=== PATIENT | female | born 1945 | race Caucasian/White ===

== ENCOUNTER 2018-08-24 07:51 | Inpatient (IN) | payer OTHER ==
[2018-08-12 11:51] VITALS: BMI 30.9
[~2018-08-24 07:51] MED LIST: CEFAZOLIN 2 GM in DEXTROSE 5%-WATER - 50 ML IVPB ONE; VANCOMYCIN 1,250 MG in DEXTROSE 5%-WATER - 250 ML IVPB ONE
[2018-08-24] MEDS ORDERED: MIDAZOLAM HCL 2 MG/2 ML SINGLE DOSE VIAL ONE ×2 (09:32→10:05)
[2018-08-24] MEDS ORDERED: BUPIVACAINE LIPOSOME/PF (EXPAREL) 266 MG/20 ML VIAL ONE (09:32)
[2018-08-24] MEDS ORDERED: PROPOFOL 20 ML ONE ×4 (10:05→13:02)
[2018-08-24] MEDS ORDERED: SUCCINYLCHOLINE CHLORIDE 200 MG/10 ML VIAL ONE (10:05)
[2018-08-24] MEDS ORDERED: ceFAZolin SODIUM 1 GM VIAL ONE (10:42)
[2018-08-24] MEDS ORDERED: DEXAMETHASONE SOD PHOSPHATE 4 MG/1 ML VIAL ONE (10:42)
[2018-08-24] MEDS ORDERED: TRANEXAMIC ACID 1000 MG/10 ML VIAL ONE (10:42)
[2018-08-24] MEDS ORDERED: ONDANSETRON 4 MG/2 ML VIAL ONE (10:42)
[2018-08-24] MEDS ORDERED: KETOROLAC TROMETHAMINE 60 MG/2 ML VIAL ONE (10:58)
[2018-08-24] MEDS ORDERED: EPINEPHrine/PF 1 MG/1 ML (1:1,000) AMPULE ONE (10:58)
[2018-08-24] MEDS ORDERED: SODIUM CHLORIDE 0.9% P/F 10 ML VIAL IJ ONE (10:59)
[2018-08-24] MEDS ORDERED: MORPHINE SULFATE 10 MG/1 ML *VIAL ONE (10:59)
[2018-08-24] MEDS ORDERED: BUPIVACAINE HCL/PF 2.5 MG/ML - 30 ML VIAL IJ ONE (11:00)
--- NOTE | 2018-08-24 12:48 | PN ---
Progress Note (short form) - Note Progress Note: 73F s/p RIGHT total knee replacement POD #0. -Pain control. -DVT PPx: -Chemical: ASA 81mg PO BID x 6 weeks. -Mechanical: CAITY's, SCD's. -Incentive spirometry q15 min. -PT/OT/Rehab, OOB. -WBAT LLE. -Antibiotics: Ancef x 2 post op doses. -f/u post-op trial of void. -f/u drain output; ok to d/c when <30cc/8 hrs. -Diet as tolerated. -Keep dressing clean & dry. -Care per medical hospitalist team. -f/u [facility] [place] office 09/02/2017; call for appointment; . -Will follow. Thanh Cobos MD (Orthopaedic Surgery).
[2018-08-24] MEDS ORDERED: MAG HYDROX/AL HYDROX/SIMETH 30 ML UNIT-DOSE CUP PO PRN (12:52)
[2018-08-24] MEDS ORDERED: MAGNESIUM HYDROX 2400MG/30ML ORAL SUSPENSION 30 ML CUP PO PRN (12:52)
--- NOTE | 2018-08-24 12:52 | OP ---
Operative Note - Note: Operative Date: 08/24/18 Pre-Operative Diagnosis: Right knee DJD Operation: Right TKA Implants: Fertile Triathlon. Femur - 4. Tibia - 4. Poly - 9mm, PS. Patella - 27mm Post-Operative Diagnosis: Same as Pre-op Surgeon: Thanh Cobos Film Tests Checker: Zuhair Cobos Anesthesiologist/COMMERCIAL GREEN BUILDING DESIGNER: Chito Beckford Anesthesia: Spinal Specimens Removed: Bone, soft tissue Estimated Blood Loss (mls): 0 Drains & Tubes with Location: 1 x deep HemoVac Fluid Volume Replaced (mls): 1,000 Operative Report Dictated: Yes
[2018-08-24] MEDS ORDERED: LACTATED RINGERS SOLUTION 1,000 ML IV SCH (13:00)
[2018-08-24] MEDS ORDERED: BENZOIN/ALOE VERA/STORAX/TOLU 58 ML BOTTLE ONE (13:00)
[2018-08-24] MEDS ORDERED: PROMETHAZINE HCL 25 MG/1 ML VIAL IVPB PRN (13:43)
[2018-08-24] MEDS ORDERED: ONDANSETRON 4 MG/2 ML VIAL IVPUSH PRN (13:43)
[2018-08-24] MEDS ORDERED: ACETAMINOPHEN 325 MG TABLET (FP) PO SCH (13:45)
[2018-08-24] MEDS: ACETAMINOPHEN 325 MG TABLET (FP) PO SCH ×2 (14:45→20:10)
--- NOTE | 2018-08-24 16:46 | CONSULT ---
Consultation: REQUESTING PROVIDER: Dr. Thanh Cobos CONSULT REQUEST: We have been asked to medically evaluate this patient post- operatively. HISTORY OF PRESENT ILLNESS: 73 year-old female with a PMH significant for HTN, HLD, osteoarthritis, and right knee degenerative joint disease s/p right total knee replacement earlier today. REVIEW OF SYSTEMS: CONSTITUTIONAL: Absent: fever, chills, diaphoresis, generalized weakness, malaise, loss of appetite, weight change HEENT: Absent: rhinorrhea, nasal congestion, throat pain, throat swelling, difficulty swallowing, mouth swelling, ear pain, eye pain, visual changes CARDIOVASCULAR: Absent: chest pain, syncope, palpitations, irregular heart rate, lightheadedness , peripheral edema RESPIRATORY: Absent: cough, shortness of breath, dyspnea with exertion, orthopnea, wheezing, stridor, hemoptysis GASTROINTESTINAL: Absent: abdominal pain, abdominal distension, nausea, vomiting, diarrhea, constipation, melena, hematochezia GENITOURINARY: Absent: dysuria, frequency, urgency, hesitancy, hematuria, flank pain, genital pain MUSCULOSKELETAL: Absent: myalgia, arthralgia, joint swelling, back pain, neck pain SKIN: Absent: rash, itching, pallor HEMATOLOGIC/IMMUNOLOGIC: Absent: easy bleeding, easy bruising, lymphadenopathy, frequent infections ENDOCRINE: Absent: unexplained weight gain, unexplained weight loss, heat intolerance, cold intolerance NEUROLOGIC: Absent: headache, focal weakness or paresthesias, dizziness, unsteady gait, seizure, mental status changes, bladder or bowel incontinence PSYCHIATRIC: Absent: anxiety, depression, suicidal or homicidal ideation, hallucinations. PHYSICAL EXAMINATION Vital Signs - 24 hr 08/24/18 08/24/18 08/24/18 08:34 08:36 13:34 Temperature 97.7 F 97.5 F L Pulse Rate 65 69 Respiratory 16 16 Rate Blood Pressure 132/86 105/54 L O2 Sat by Pulse 98 97 Oximetry (%) GENERAL: Awake, alert, and fully oriented, in no acute distress. HEAD: Normal with no signs of trauma. EYES: Pupils equal, round and reactive to light, extraocular movements intact, sclera anicteric, conjunctiva clear. No lid lag. LUNGS: Breath sounds equal, clear to auscultation bilaterally. No wheezes, and no crackles. No accessory muscle use. HEART: Regular rate and rhythm, S1 and S2 ABDOMEN: Soft, nontender, not distended UPPER EXTREMITIES: 2+ pulses, warm, well-perfused. No cyanosis. No clubbing. Cap refill <2 seconds. No peripheral edema. LOWER EXTREMITIES: SCDs, TEDs bilaterally; RLE surgical wrapping c/d/i; ice paks ; Hemovac drain dark sanguinous drainage NEUROLOGICAL: Cranial nerves II-XII intact. Normal speech. Active Medications Generic Name Dose Route Start Last Admin Trade Name Freq PRN Reason Stop Dose Admin Acetaminophen 650 mg 08/24/18 15:00 08/24/18 14:45 Tylenol - PO 650 mg Q6H NICKOLAS Administration Al Hydroxide/Mg Hydroxide 30 ml 08/24/18 12:52 Mylanta Oral Suspension - PO Q4H PRN DYSPEPSIA Aspirin 81 mg 08/24/18 22:00 Asa - PO BID NICKOLAS Fentanyl 50 mcg 08/24/18 13:43 Sublimaze Injection - IVPUSH [id number] PRN PAIN-PACU ORDER X 4 DOSES ONLY Cefazolin Sodium 1 gm in 50 mls @ 100 mls/hr 08/24/18 21:00 Ancef 1 Gm Premixed Ivpb - IVPB 08/25/18 02:29 Q8H-IV NICKOLAS Lactated Ringer's 1,000 mls @ 125 mls/hr 08/24/18 13:00 08/24/18 16:14 Lactated Ringers Solution IV 08/25/18 06:00 Not Given [facility] Lisinopril 20 mg 08/25/18 10:00 Prinivil PO DAILY [facility] Magnesium Hydroxide 30 ml 08/24/18 12:52 Milk Of Magnesia - PO PRN PRN CONSTIPATION Ondansetron HCl 4 mg 08/24/18 12:52 Zofran Injection IVPUSH Q6H PRN NAUSEA Ondansetron HCl 4 mg 08/24/18 13:43 Zofran Injection IVPUSH Q6H PRN NAUSEA AND/OR VOMITING Oxycodone HCl 5 mg 08/24/18 13:43 Roxicodone - PO Q3H PRN PAIN LEVEL 1-5 Oxycodone HCl 10 mg 08/24/18 13:43 Roxicodone - PO Q3H PRN PAIN LEVEL 6-10 Oxycodone HCl 10 mg 08/24/18 22:00 Oxycontin - PO 08/27/18 13:43 BID NICKOLAS Pantoprazole Sodium 40 mg 08/25/18 10:00 Protonix - PO DAILY NICKOLAS Promethazine HCl 12.5 mg 08/24/18 13:43 Phenergan Injection - IVPB Q6H PRN NAUSEA-FOR RESCUE AFTER 15 MIN Senna/Docusate Sodium 2 tablet 08/24/18 22:00 Pericolace - PO BID NICKOLAS ASSESSMENT/PLAN: 73 year-old female with a PMH significant for HTN, HLD, osteoarthritis, and right knee degenerative joint disease s/p right total knee replacement. Right total knee replacement --POD #0 --perioperative antibiotics per surgery --pain management per surgery --ASA 81mg BID --protonix --bowel regimen --incentive spirometry --Hemovac drain, monitor output Hypertension --continue lisinopril Hyperlipidemia --continue statin FEN Fluids: LR@100mL/hr Electrolytes: replete as indicated Nutrition: regular diet Physical therapy DVT prophylaxis: SCDs, TEDs, oob, ambulation, ASA 81mg PO BID x 6 weeks. Dispo: We will continue to follow the patient. Thank you for this consultative opportunity. Visit type - Emergency Visit Emergency Visit: No - New Patient This patient is new to me today: Yes Date on this admission: 08/24/18 - Critical Care Critical Care patient: No
[2018-08-24] MEDS: oxyCODONE HCL 5 MG TABLET PO PRN ×2 (16:52→21:35)
--- NOTE | 2018-08-24 19:06 | OP ---
DATE OF OPERATION: 08/24/2018 PREOPERATIVE DIAGNOSIS: Tricompartmental osteoarthritis of right knee. POSTOPERATIVE DIAGNOSIS: Tricompartmental osteoarthritis of right knee. OPERATION PERFORMED: Right posterior stabilized total knee arthroplasty (cemented [place]) via subvastus approach. ANESTHESIA: Peripheral block and conscious sedation with spinal anesthesia. ANTIBIOTICS GIVEN: Two grams of Kefzol and 1 gram vancomycin preoperative, 1 gram Kefzol at the end of the procedure. DESCRIPTION OF PROCEDURE: The patient was correctly identified and brought to the operating room. The right lower extremity was prepped and draped in the routine manner with betadine scrub solution, wiped off with alcohol, and DuraPrep applied. Timeout was called. Imaging was available for intraoperative evaluation. Preoperative evaluation revealed a neutral, normal anatomy with minimal deformity in the coronal and sagittal planes with severe crepitus noted in the patellofemoral and femorotibial joints. X-rays revealed [id number] articulation. Midline incision was utilized with dissection taken along the medial aspect of the tibial tubercle, up proximally towards the joint line, then coursed medially down to the level of the intramuscular septum. The vastus medialis was then freed of its epiphyseal tissue, extending all of the way down to the back of the linear aspera and gently lifted about 3 inches off of the linea aspera to provide very easy mobile vastus medialis complex. The patella was held vertically with towel clamps holding the patellar ligament and the quadriceps tendon. The patellar cut was made through Clatsop's line and the jig setting was for size 27 polyethylene patella. The medial aspect of the soft tissue bed of the tibia was dissected off of the bone bed. The Melchor was placed posteriorly and the tibial lead a bit forward. The medial proximal tibial dissection extended to take the soft tissue off of the bone bed itself. Once this had been performed, the exposure was performed, the jig measurements and cuts were for Triathlon posterior stabilized femur size 2 and a universal baseplate for the tibia measured size 2. A 9-mm polyethylene spacer was inserted to measure both the flexion and extension gaps. This was appreciated once the actual jig cuts had been made with the appropriate seating of the Cellerix jig system, the accurate cuts were made. Trial components revealed excellent seating of these measurement implants with a size 9 polyethylene posterior stabilized liner. Range of movement was 0 to 120 degrees with a negative thumb test and complete stability in the coronal and sagittal plane. With that appreciated, the tibial plate jig settings enabled us to drill the appropriate jig components and thin cuts were made for the tibia. The bone bed was thoroughly lavaged with pulse lavage and then completed dried at the time of cementing. Cement was seated in a more viscus manner and all components were solidly seated. All extraneous cement removed. The size 9 polyethylene spacer was inserted once all of the appropriate debris that included fat, residual marrow content, as well as fragments of cement were all washed out appropriately. The bed was beautifully clean. Polyethylene 9 x 9 mm with a posterior stabilized component to it was seated. Closure of the quadriceps subvastus approach with 1 Vicryl, the medial aspect of the retinaculum was attached to half an inch of soft tissue, which was left behind, related to the distal end of the vastus medialis. Closure as follows: Subcutaneous in 2 layers with number 1 Vicryl, skin with 3-0 Monocryl and Steri-Strips. Drainage: One eighth inch Hemovac to the medial side of the distal femur. Postoperative x-rays were excellent. Patient tolerated the procedure well. MD MARK Dwyer/[id number]
[2018-08-24] MEDS: CEFAZOLIN 1 GM/D5W 1 GM/50 ML BAG IVPB SCH (20:10)
[2018-08-24] MEDS: oxyCODONE HCL 10 MG SUSTAINED ACTING TABLET PO SCH (21:34)
[2018-08-24] MEDS: SENNOSIDES/DOCUSATE COMBO (SENNA PLUS) TABLET (UD) PO SCH (21:34)
[2018-08-24] MEDS: ATORVASTATIN CA 10 MG TABLET (FP) PO SCH (21:49)
[2018-08-24] MEDS ORDERED: ASPIRIN 325 MG TABLET PO SCH (22:00)
[2018-08-25] MEDS: CEFAZOLIN 1 GM/D5W 1 GM/50 ML BAG IVPB SCH (01:00)
[2018-08-25] MEDS: oxyCODONE HCL 5 MG TABLET PO PRN ×5 (01:01→18:27)
[2018-08-25] MEDS: ACETAMINOPHEN 325 MG TABLET (FP) PO SCH ×4 (03:08→21:21)
[2018-08-25] MEDS: ONDANSETRON 4 MG/2 ML VIAL IVPUSH PRN ×2 (07:19→20:46)
[2018-08-25 08:12] LABS: BASO % 0.1 % (0-2.0); HEMATOCRIT 35.2 % (32.4-45.2); HEMOGLOBIN 11.4 GM/dl (10.7-15.3); LYMPH % 6.5 % (8-40); MCH 27.5 pg (25.7-33.7); MCHC 32.4 g/dl (32.0-36.0); MEAN CELL VOLUME 85.1 fl (80-96); MEAN PLT VOLUME 10.8 fl (7.5-11.1); MONO % 10.3 % (3.8-10.2); NEUT % 83.1 % (42.8-82.8); PLATELET COUNT 147 K/MM3 (134-434); RBC 4.13 M/mm3 (3.60-5.2); RDW 12.4 % (11.6-15.6); WHITE BLOOD COUNT 10.6 K/mm3 (4.0-10.8)
[2018-08-25 08:26] LABS: ALBUMIN 3.1 g/dl (3.5-5.0); ALK PHOS 54 U/L (32-92); ANION GAP 4 MMOL/L (8-16); BILIRUBIN,TOTAL 0.5 mg/dl (0.2-1.0); BLOOD UREA NITROGEN 24 mg/dl (7-18); CALCIUM 8.8 mg/dl (8.4-10.2); CHLORIDE 104 mmol/L (98-107); CO2 27 mmol/L (22-28); CREATININE 0.9 mg/dl (0.6-1.3); GLUCOSE,RANDOM 125 mg/dl (74-106); MAGNESIUM 1.8 mg/dL (1.8-2.4); POTASSIUM 4.3 mmol/L (3.5-5.1); SGOT/AST 26 U/L (10-42); SGPT/ALT 17 U/L (10-40); SODIUM 135 mmol/L (136-145)
--- NOTE | 2018-08-25 08:47 | PN ---
Progress Note (short form) - Note Progress Note: 73F s/p Right knee replacement, seen sitting up in chair. Pt states that her pain has been well controlled, she has not really walked too much yet. Pt denies any fever, chills, n/v. Pt is urinating well. Last Vital Signs Temp Pulse Resp BP Pulse Ox 98.5 F 73 19 138/66 96 08/25/18 05:00 08/25/18 05:00 08/25/18 05:00 08/25/18 05:00 08/25/18 01:13 CBC, BMP 08/25/18 07:35 08/25/18 07:35 PE: Gen: A&O x3 Resp: breathing comfortably Ext: RLE no weakness or numbness, dressing in place clean with no erythema or discharge. Drain shows serosanguinous drainage. Out: 90ml Problem List - Problems (1) Total knee replacement status Assessment/Plan: Plan -drain removed at bedside. -follow up with PT today -pt states would really like to be discharged home, will see how she does with PT -pain management, -DVT ppx Code(s): Z96.659 - PRESENCE OF UNSPECIFIED ARTIFICIAL KNEE JOINT
--- NOTE | 2018-08-25 09:42 | PN ---
Progress Note (short form) - Note Progress Note: 73F POD1 s/p R TKR under spinal anesthetic with peripheral nerve blocks for post operative pain relief. Pt states that pain is well controlled and reports no anesthetic complications. AVSS. Motor and sensory exam intact in bilateral lower extremities. Continue current regimen.
[2018-08-25] MEDS: ASPIRIN 81 MG CHEWABLE TABLETS PO SCH ×2 (10:18→21:21)
[2018-08-25] MEDS: SENNOSIDES/DOCUSATE COMBO (SENNA PLUS) TABLET (UD) PO SCH ×2 (10:21→21:22)
[2018-08-25] MEDS: oxyCODONE HCL 10 MG SUSTAINED ACTING TABLET PO SCH (10:21)
[2018-08-25] MEDS: LISINOPRIL 20 MG TABLET (FP) PO SCH (10:21)
[2018-08-25] MEDS: PANTOPRAZOLE 40 MG TABLET (FP) PO SCH (10:21)
--- NOTE | 2018-08-25 10:46 | PN ---
Physical Exam: SUBJECTIVE: Patient seen and examined oob to chair. Vomited during physical therapy. OBJECTIVE: Vital Signs Period Temp Pulse Resp BP Sys/Johns Pulse Ox Last 24 Hr 97.2 F-98.5 F 60-82 16-20 97-138/54-97 96-98 GENERAL: Awake, alert, and fully oriented, in no acute distress. HEAD: Normal with no signs of trauma. EYES: Pupils equal, round and reactive to light, extraocular movements intact, sclera anicteric, conjunctiva clear. No lid lag. LUNGS: Breath sounds equal, clear to auscultation bilaterally. No wheezes, and no crackles. No accessory muscle use. HEART: Regular rate and rhythm, S1 and S2 ABDOMEN: Soft, nontender, not distended UPPER EXTREMITIES: 2+ pulses, warm, well-perfused. No cyanosis. No clubbing. Cap refill <2 seconds. No peripheral edema. LOWER EXTREMITIES: SCDs, TEDs bilaterally; RLE surgical wrapping c/d/i NEUROLOGICAL: Cranial nerves II-XII intact. Normal speech. Laboratory Results - last 24 hr 08/25/18 08/25/18 07:35 07:35 WBC 10.6 RBC 4.13 Hgb 11.4 Hct 35.2 MCV 85.1 MCH 27.5 MCHC 32.4 RDW 12.4 Plt Count 147 MPV 10.8 Absolute Neuts (auto) 8.8 Neutrophils % 83.1 H Lymphocytes % 6.5 L Monocytes % 10.3 H Eosinophils % 0.0 Basophils % 0.1 Sodium 135 L Potassium 4.3 Chloride 104 Carbon Dioxide 27 Anion Gap 4 L BUN 24 H Creatinine 0.9 Creat Clearance w eGFR > 60 Random Glucose 125 H Calcium 8.8 Magnesium 1.8 Total Bilirubin 0.5 AST 26 ALT 17 Alkaline Phosphatase 54 Total Protein 6.0 L Albumin 3.1 L Active Medications Generic Name Dose Route Start Last Admin Trade Name Freq PRN Reason Stop Dose Admin Acetaminophen 650 mg 08/24/18 15:00 08/25/18 08:45 Tylenol - PO 650 mg Q6H NICKOLAS Administration Al Hydroxide/Mg Hydroxide 30 ml 08/24/18 12:52 Mylanta Oral Suspension - PO Q4H PRN DYSPEPSIA Aspirin 81 mg 08/25/18 10:00 08/25/18 10:18 Asa - PO 81 mg BID NICKOLAS Administration Atorvastatin Calcium 10 mg 12/26/18 22:00 08/24/18 21:49 Lipitor - PO 10 mg HS NICKOLAS Administration Lisinopril 20 mg 08/25/18 10:00 08/25/18 10:21 Prinivil PO Not Given DAILY NICKOLAS Magnesium Hydroxide 30 ml 08/24/18 12:52 Milk Of Magnesia - PO PRN PRN CONSTIPATION Ondansetron HCl 4 mg 08/24/18 12:52 08/25/18 07:19 Zofran Injection IVPUSH 4 mg Q6H PRN Administration NAUSEA Oxycodone HCl 5 mg 08/24/18 13:43 08/25/18 08:46 Roxicodone - PO 5 mg Q3H PRN Administration PAIN LEVEL 1-5 Oxycodone HCl 10 mg 08/24/18 13:43 08/25/18 01:01 Roxicodone - PO 10 mg Q3H PRN Administration PAIN LEVEL 6-10 Oxycodone HCl 10 mg 08/24/18 22:00 08/25/18 10:21 Oxycontin - PO 08/27/18 13:43 Not Given BID NICKOLAS Pantoprazole Sodium 40 mg 08/25/18 10:00 08/25/18 10:21 Protonix - PO 40 mg DAILY NICKOLAS Administration Senna/Docusate Sodium 2 tablet 08/24/18 22:00 08/25/18 10:21 Pericolace - PO 2 tablet BID NICKOLAS Administration ASSESSMENT/PLAN: 73 year-old female with a PMH significant for HTN, HLD, osteoarthritis, and right knee degenerative joint disease s/p right total knee replacement. Right total knee replacement --POD #1 --perioperative antibiotics complete --pain management per surgery --ASA 81mg BID --protonix --bowel regimen --incentive spirometry --Hemovac drain out Hypertension --continue lisinopril Hyperlipidemia --continue statin FEN Fluids: PO intake adequate Electrolytes: replete as indicated Nutrition: regular diet Physical therapy DVT prophylaxis: SCDs, TEDs, oob, ambulation, ASA 81mg PO BID x 6 weeks. Dispo: We will continue to follow the patient. Thank you for this consultative opportunity. Visit type - Emergency Visit Emergency Visit: No - New Patient This patient is new to me today: No - Critical Care Critical Care patient: No
[2018-08-25] MEDS: ATORVASTATIN CA 10 MG TABLET (FP) PO SCH (21:22)
[2018-08-26] MEDS: oxyCODONE HCL 5 MG TABLET PO PRN (02:11)
[2018-08-26] MEDS: ACETAMINOPHEN 325 MG TABLET (FP) PO SCH ×2 (02:11→10:52)
[2018-08-26] MEDS: ONDANSETRON 4 MG/2 ML VIAL IVPUSH PRN (06:52)
[2018-08-26 08:16] LABS: HEMATOCRIT 32.9 % (32.4-45.2); HEMOGLOBIN 10.4 GM/dl (10.7-15.3); MCH 26.8 pg (25.7-33.7); MCHC 31.6 g/dl (32.0-36.0); MEAN PLT VOLUME 11.1 fl (7.5-11.1); PLATELET COUNT 134 K/MM3 (134-434); RBC 3.88 M/mm3 (3.60-5.2); WHITE BLOOD COUNT 7.7 K/mm3 (4.0-10.8)
--- NOTE | 2018-08-26 08:38 | PN ---
Physical Exam: SUBJECTIVE: Patient seen and examined OBJECTIVE: Vital Signs Period Temp Pulse Resp BP Sys/Johns Pulse Ox Last 24 Hr 97.2 F-98.2 F 63-81 17-19 106-145/53-65 92-97 Laboratory Results - last 24 hr 08/26/18 07:30 WBC 7.7 RBC 3.88 Hgb 10.4 L Hct 32.9 MCV 85.0 MCH 26.8 MCHC 31.6 L RDW 13.0 Plt Count 134 MPV 11.1 Active Medications Generic Name Dose Route Start Last Admin Trade Name Freq PRN Reason Stop Dose Admin Acetaminophen 650 mg 08/24/18 15:00 08/26/18 02:11 Tylenol - PO 650 mg Q6H NICKOLAS Administration Al Hydroxide/Mg Hydroxide 30 ml 08/24/18 12:52 Mylanta Oral Suspension - PO Q4H PRN DYSPEPSIA Aspirin 81 mg 08/25/18 10:00 08/25/18 21:21 Asa - PO 81 mg BID NICKOLAS Administration Atorvastatin Calcium 10 mg 08/24/18 22:00 08/25/18 21:22 Lipitor - PO 10 mg HS NICKOLAS Administration Lisinopril 20 mg 08/25/18 10:00 08/25/18 10:21 Prinivil PO Not Given DAILY NICKOLAS Magnesium Hydroxide 30 ml 08/24/18 12:52 Milk Of Magnesia - PO PRN PRN CONSTIPATION Ondansetron HCl 4 mg 08/24/18 12:52 08/26/18 06:52 Zofran Injection IVPUSH 4 mg Q6H PRN Administration NAUSEA Oxycodone HCl 5 mg 08/24/18 13:43 08/26/18 02:11 Roxicodone - PO 5 mg Q3H PRN Administration PAIN LEVEL 1-5 Pantoprazole Sodium 40 mg 08/25/18 10:00 08/25/18 10:21 Protonix - PO 40 mg DAILY NICKOLAS Administration Senna/Docusate Sodium 2 tablet 08/24/18 22:00 08/25/18 21:22 Pericolace - PO 2 tablet BID NICKOLAS Administration ASSESSMENT/PLAN:
[2018-08-26] MEDS ORDERED: TRIMETHOBENZAMIDE HCL 300 MG CAPSULE PO PRN (09:10)
[2018-08-26] MEDS: ASPIRIN 81 MG CHEWABLE TABLETS PO SCH (10:51)
[2018-08-26] MEDS: LISINOPRIL 20 MG TABLET (FP) PO SCH (10:51)
[2018-08-26] MEDS: PANTOPRAZOLE 40 MG TABLET (FP) PO SCH (10:51)
[2018-08-26] MEDS: SENNOSIDES/DOCUSATE COMBO (SENNA PLUS) TABLET (UD) PO SCH (10:52)
--- NOTE | 2018-08-26 11:01 | DS ---
Physical Exam: SUBJECTIVE: Patient seen and examined OBJECTIVE: Vital Signs Temperature 98.2 F 08/26/18 06:32 Pulse Rate 77 08/26/18 06:32 Respiratory Rate 18 08/26/18 06:32 Blood Pressure 116/63 08/26/18 06:32 O2 Sat by Pulse Oximetry (%) 92 L 08/26/18 06:32 PHYSICAL EXAM GENERAL: The patient is awake, alert, and fully oriented, in no acute distress. HEAD: Normal with no signs of trauma. EYES: PERRL, extraocular movements intact, sclera anicteric, conjunctiva clear. ENT: Ears normal, nares patent, oropharynx clear without exudates, moist mucous membranes. NECK: Trachea midline, full range of motion, supple. LUNGS: Breath sounds equal, clear to auscultation bilaterally, no wheezes, no crackles, no accessory muscle use. HEART: Regular rate and rhythm, S1, S2 without murmur, rub or gallop. ABDOMEN: Soft, nontender, nondistended, normoactive bowel sounds, no guarding, no rebound, no hepatosplenomegaly, no masses. EXTREMITIES: RLE with dressing c/d/i. No hematoma. NEUROLOGICAL: Cranial nerves II through XII grossly intact. Normal speech, gait not observed. PSYCH: Normal mood, normal affect. SKIN: Warm, dry, normal turgor, no rashes or lesions noted. LABS CBC,CMP WBC 7.7 K/mm3 (4.0-10.8) 08/26/18 07:30 RBC 3.88 M/mm3 (3.60-5.2) 08/26/18 07:30 Hgb 10.4 GM/dl (10.7-15.3) L 08/26/18 07:30 Hct 32.9 % (32.4-45.2) 08/26/18 07:30 MCV 85.0 fl (80-96) 08/26/18 07:30 MCH 26.8 pg (25.7-33.7) 08/26/18 07:30 MCHC 31.6 g/dl (32.0-36.0) L 08/26/18 07:30 RDW 13.0 % (11.6-15.6) 08/26/18 07:30 Plt Count 134 K/MM3 (134-434) 08/26/18 07:30 MPV 11.1 fl (7.5-11.1) 08/26/18 07:30 Absolute Neuts (auto) 8.8 K/mm3 08/25/18 07:35 Neutrophils % 83.1 % (42.8-82.8) H 08/25/18 07:35 Lymphocytes % 6.5 % (8-40) L 08/25/18 07:35 Monocytes % 10.3 % (3.8-10.2) H 08/25/18 07:35 Eosinophils % 0.0 % (0-4.5) 08/25/18 07:35 Basophils % 0.1 % (0-2.0) 08/25/18 07:35 Sodium 135 mmol/L (136-145) L 08/25/18 07:35 Potassium 4.3 mmol/L (3.5-5.1) 08/25/18 07:35 Chloride 104 mmol/L (98-107) 08/25/18 07:35 Carbon Dioxide 27 mmol/L (22-28) 08/25/18 07:35 Anion Gap 4 MMOL/L (8-16) L 08/25/18 07:35 BUN 24 mg/dl (7-18) H 08/25/18 07:35 Creatinine 0.9 mg/dl (0.6-1.3) 08/25/18 07:35 Creat Clearance w eGFR > 60 (>60) 08/25/18 07:35 Random Glucose 125 mg/dl (74-106) H 08/25/18 07:35 Calcium 8.8 mg/dl (8.4-10.2) 08/25/18 07:35 Magnesium 1.8 mg/dL (1.8-2.4) 08/25/18 07:35 Total Bilirubin 0.5 mg/dl (0.2-1.0) 08/25/18 07:35 AST 26 U/L (10-42) 08/25/18 07:35 ALT 17 U/L (10-40) 08/25/18 07:35 Alkaline Phosphatase 54 U/L (32-92) 08/25/18 07:35 Total Protein 6.0 g/dl (6.4-8.3) L 08/25/18 07:35 Albumin 3.1 g/dl (3.5-5.0) L 08/25/18 07:35 HOSPITAL COURSE: Date of Admission:08/24/18 Date of Discharge: 08/26/18 The patient was admitted to the Med-Surg Unit after an elective repair of their right knee DJD. Now, s/p right total knee replacement. Went from PACU to the floors for continued observation and daily care. POD #1 the patient ambulated the hallways with assistance. Narcotic and non-narcotic pain management control was achieved with an oral and IV approach. Drain removed fully intact and without incident. INtra-op xray was obtained after the case and confirmed hardware placement, no fractures. Kavita-operative IV ABX were administered. DVT prophylaxis was achieved with SCDs and early ambulation. The patient ambulated with Physical Therapy. Patient will receive in-home PT ( set-up already). Narcotic scripts were checked with MES JIG BORE OPERATOR prior to escribe. The discharge instructions and an oral pain management plan were reviewed with the patient. All questions answered. Above plan discussed with Dr. Zuhair Cobos and agreed. Minutes to complete discharge: 36 Visit type - Case Type Case Type: Scheduled
[2018-08-26] MEDS ORDERED: traMADol HCL 50 MG TABLET PO PRN (11:03)
[2018-08-26] MEDS ORDERED: SCOPOLAMINE HYDROBROMIDE 1 PATCH PATCH.TD72 TD SCH (11:30)
[2018-08-26] MEDS ORDERED: ACETAMINOPHEN 1000 MG/100 ML VIAL (NON FORMULARY) IVPB ONE (11:30)
[2018-08-26] MEDS ORDERED: KETOROLAC TROMETHAMINE 15 MG/ML VIAL IVPUSH ONE (11:45)
[2018-08-26 14:24] VITALS: BP 129/60; PULSE 82; TEMP 97.8
--- NOTE | 2018-09-01 14:33 | PATH ---
Surgical Pathology Report Patient Name: KRISTINA GARCIA Med. Rec. #: [id number] /Age/Gender: 1945 (Age: 73) / F Account: [id number] Location: [facility] MED-SURG Taken: 08/24/2018 Received: 08/24/2018 Reported: 09/01/2018 Physicians: Thanh Cobos M.D. Specimen(s) Received BONES RIGHT KNEE Clinical History Right knee osteoarthritis Final Diagnosis BONES, RIGHT KNEE, TOTAL KNEE REPLACEMENT: DEGENERATIVE JOINT DISEASE. Electronically Signed Kennedi Ring M.D. Gross Description Received in formalin labeled "bones right knee," is an 11.0 x 8.0 x 1.3 cm aggregate of multiple pagan portions of bone and soft tissue. The tibial plateau measures 7.7 x 5.5 x 1.6 cm. There are no areas of eburnation identified. The underlying trabecular bone is yellow and hard. Skiver Uppers [employer] Linings sections are submitted in one cassette, following decalcification. 08/26/2018 [facility]08/26/2018
== END 2018-08-26 15:45 | disposition home or self-care (01) | DRG 470 ==
LOC: FM/S 07:51
PROVIDERS: ADMIT Orthopaedic Surgery Orthopaedic Surgery of the Spine; ATTEND Orthopaedic Surgery Orthopaedic Surgery of the Spine
PROC: 0SRC0J9 Replacement of Right Knee Joint with Synthetic Substitute, Cemented, Open Approach (ICD-10-PCS; principal; 2018-08-24 11:21)
DX: M17.11 Unilateral primary osteoarthritis, right knee (principal); I10 Essential (primary) hypertension; E78.5 Hyperlipidemia, unspecified
CPT/HCPCS: 36415; 73560-TC-RT-FY; 80048; 80053; 83735; 85025; 85027; 88304-TC; 88311-TC; 94760; 97116-GP; 97161-GP; J0131